=== PATIENT | female | born 2000 | race Asian ===

== ENCOUNTER 2021-08-10 04:10 | Emergency (ER) | payer OTHER | END 2021-08-10 05:48 | disposition home or self-care (01) | LOC: CSHERS 04:10 | DX: F41.9 Anxiety disorder, unspecified (principal) | CPT/HCPCS: 99283 ==

== ENCOUNTER 2021-08-12 23:10 | Emergency (ER) | payer OTHER | END 2021-08-13 01:55 | disposition home or self-care (01) | LOC: CSHERS 23:10 | DX: M79.602 Pain in left arm (principal) | CPT/HCPCS: 93005 ==